=== PATIENT | male | born 1970 | race Caucasian/White ===

== ENCOUNTER 2016-05-29 07:04 | Emergency (ER) | payer OTHER ==
[2016-05-29 07:21] VITALS: BP 120/64
--- NOTE | 2016-05-29 07:55 | UC ---
Elena Stratton Anna, [facility] 05/29/16 at 0717 . Upper Extremity HPI - HPI Summary HPI Summary: MD Note Temperature 99.3 Vital signs stable. Pulse ox 97. 8/10 pain in right shoulder. Review of medical records note Disc herniation L2/L3 with an MRI in March 2015. No known allergies. Patient is here for pain relief. [facility]: #[id number]. Hydrocodone May 2015, #90, by Dr. Brant Parsons. Diazepam 5 mg #30, by Dr. Mando Peterson 07/31/2015. 90 Diazepam on 09/05/2015. Nurses Note pt states he has a 3 degree clavical seporation. pt states that he is having pain to rt shoulder. pt also states he has back pin as well. pt states this is a cronic issue for the past 10-12 years and this acute exacerbation has been for the past 1 week or so. 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 In Room Note Patient is a 45 y/o male coming to [facility] presenting with acute on chronic RIGHT SHOULDER PAIN that began one week ago. The pain RADIATES down his arm. He describes the pain as a burning pain with severity of pain as 8/10. He additionally reports BACK PAIN. Normally, the pain is alleviated with heat, but this week, the pain has been WORSENING. Acetaminophen, ibuprofen and TENS unit do not alleviate the pain. His ROM is normal. The most severe pain is under his right scapula. He reports DRY EYES and NUMB HANDS at baseline. Denies cold symptoms, n/v/d, fever. He denies previous operations on this arm. The patient lifts his arms frequently for work. He as a 3rd degree clavicle separation. His previous prescription for Valium was for anxiety. He has a standing appointment with his PCP tomorrow, 05/30/2016. - History of Current Complaint Stated Complaint: shoulder/arm pain Hx Obtained From: Patient Onset/Duration: Still Present, Worse Since - one week ago - Allergies/Home Medications Allergies/Adverse Reactions: Allergies Allergy/AdvReac Type Severity Reaction Status Date / Time No Known Allergies Allergy Verified 06/05/15 07:04 Home Medications: Home Medications DOXYcycline CAP(*) [DOXYcycline 100MG CAP(*)] 100 mg PO BID 05/29/16 [History Confirmed 05/29/16] PMH/Surg Hx/FS Hx/Imm Hx Endocrine History Of: Denies: Diabetes, Thyroid Disease Cardiovascular History Of: Denies: Cardiac Disorders, Hypertension, Pacemaker/ICD Respiratory History Of: Denies: COPD, Asthma GI/ History Of: Reports: Kidney Stones - HISTORY- OF AND CURRENTLY-BILATERAL Denies: Ulcer, Renal Disease Neurological History Of: Reports: Seizures - X 1 - WHEN STOPPED CLONZEPAM ABRUPTLY-~06/2014, Migraine - OCCASIONAL Psychological History Of: Reports: Anxiety - CLONAZEPAM, Depression - Surgical History Surgical History: Yes Surgery Procedure, Year, and Place: appendectomy as a child - Family History Known Family History: Positive: Cardiac Disease, Other - Colon [place] - Social History Alcohol Use: Rare Substance Use Type: None, Marijuana Substance Use Comment - Amount & Last Used: DAILY Smoking Status (MU): Former Smoker Review of Systems Constitutional: Negative Skin: Negative Eyes: Other - dry eyes ENT: Negative Respiratory: Negative Cardiovascular: Negative Gastrointestinal: Negative Genitourinary: Negative Motor: Negative Neurovascular: Negative Musculoskeletal: Arthralgia, Myalgia Neurological: Numbness Psychological: Negative All Other Systems Reviewed And Are Negative: Yes Physical Exam Triage Information Reviewed: Yes Appearance: Well-Appearing, No Pain Distress, Well-Nourished Vital Signs: Initial Vital Signs Temp 99.3 F 05/29/16 07:15 Pulse 69 05/29/16 07:15 Resp 18 05/29/16 07:15 BP 120/64 05/29/16 07:15 Pulse Ox 97 05/29/16 07:15 Vital Signs Reviewed: Yes Eyes: Positive: Conjunctiva Clear ENT: Positive: Hearing grossly normal, Pharynx normal, TMs normal. Negative: Muffled/hoarse voice Neck: Positive: Supple, No Lymphadenopathy Respiratory: Positive: Chest non-tender, Lungs clear, Normal breath sounds, No respiratory distress Cardiovascular: Positive: RRR, No Murmur Abdomen Description: Positive: Nontender, No Organomegaly, Soft Bowel Sounds: Positive: Present Musculoskeletal: Positive: Strength Intact, Other: - CORDERO. OBVIOUS STEPOFF AT AC JOINT. ELEVATION OF THE ARM CREATES INCREASED DISCOMFORT OVER THE SCAPULA AND ROTATOR MUSCLES. MILD POINT TENDERNESS OF R SCAPULA. Nonetheless, there is full ROM and no deficits in movement, circulation, or sensation of RUE. Neurological: Positive: Alert Psychological: Positive: Age Appropriate Behavior Skin: Negative: rashes Upper Extremity Course/Dx - Differential Dx/Diagnosis Differential Diagnosis/HQI/PQRI: Other - Tendonitis vs. muscle tear Provider Diagnoses: Rotator cuff overuse injury, right shoulder Discharge - Discharge Plan Condition: Stable Disposition: HOME Prescriptions: Cyclobenzaprine TAB* [Flexeril TAB*] 10 mg PO BID #10 tab MDD 2 HYDROcodone/ACETAMIN 5-325 MG* [[place] 5-325 TAB*] 1 tab PO Q6H #10 tab MDD 4 Patient Education Materials: Acromioclavicular Separation (ED), Rotator Cuff Tendinitis (ED) Referrals: Hair Higgins DO [Doctor of Osteopathy] - Additional Instructions: WE DISCUSSED: You probably have an injury/inflammation of the soft tissue around the right shoulder from overuse. Physical therapy, sling, anti-inflammatory medication, change of movement routine can help. I have given you Flexeril and Hydrocodone to get you through the next few days. Call for any new pain or disability. See your doctor tomorrow, as planned. The documentation as recorded by the Elena nelson Anna accurately reflects the service I personally performed and the decisions made by me, Vern Vernon MD.
== END 2016-05-29 07:58 | disposition home or self-care (01) ==
LOC: UCEAST 07:04
DX: M70.811 Other soft tissue disorders related to use, overuse and pressure, right shoulder (principal); Y93.9 Activity, unspecified; F12.90 Cannabis use, unspecified, uncomplicated; Z87.891 Personal history of nicotine dependence
CPT/HCPCS: 99212; G0463

== ENCOUNTER 2018-09-08 13:59 | Emergency (ER) | payer OTHER ==
[2018-09-08] MEDS ORDERED: Rabies VIRUS VACCINE (Imovax)* 2.5 UNIT/ML 1 ML IM ONE (14:03)
[2018-09-08] MEDS ORDERED: Tetan/Diph/Pertus SYR(Tdap)* 0.5 ML SYR(BOOSTRIX) use SYR IM ONE (14:03)
--- NOTE | 2018-09-08 14:04 | UC ---
General HPI - HPI Summary HPI Summary: 48 yo male presents for rabies immunizations. He tells me that last night his cat was fighting with a raccoon and pt went to separate them. Pt ended up picking up the raccoon and them. He notified the health department this morning and they recommended he undergo rabies vaccination. Pt states he sustained no bite or scratches. 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 He has no symptoms at this time. - History of Current Complaint Stated Complaint: RABBIES SHOTS Time Seen by Provider: 09/08/18 14:03 Hx Obtained From: Patient Onset/Duration: Sudden Onset Current Severity: None - Allergy/Home Medications Allergies/Adverse Reactions: Allergies Allergy/AdvReac Type Severity Reaction Status Date / Time No Known Allergies Allergy Verified 09/08/18 14:16 Home Medications: Home Medications NK [No Home Medications Reported] 09/08/18 [History Confirmed 09/08/18] PMH/Surg Hx/FS Hx/Imm Hx - Additional Past Medical History Additional PMH: None - Surgical History Surgical History: Yes Surgery Procedure, Year, and Place: appendectomy as a child. LSP DISC REPAIR - Family History Known Family History: Positive: Cardiac Disease, Other - Colon [place] - Social History Occupation: Employed Full-time Lives: With Family Alcohol Use: Rare Substance Use Type: Marijuana Substance Use Comment - Amount & Last Used: DAILY Smoking Status (MU): Former Smoker Review of Systems All Other Systems Reviewed And Are Negative: Yes Constitutional: Positive: Negative Skin: Positive: Negative Respiratory: Positive: Negative Cardiovascular: Positive: Negative Neurovascular: Positive: Negative Neurological: Positive: Negative Psychological: Positive: Negative Physical Exam - Summary Physical Exam Summary: GENERAL: NAD. WDWN. No pain distress. SKIN: RIGHT HAND: ulnar aspect along 5th MC there is a superficial 2.5cm linear scratch that appears new. Several healed and healing abrasions and khalil on b/l palms. CHEST: No accessory muscle use. Breathing comfortably and in no distress. CV: Pulses intact. Cap refill <2seconds NEURO: Alert. PSYCH: Age appropriate behavior. Triage Information Reviewed: Yes Vital Signs: Vital Signs: Temp Pulse Resp BP Pulse Ox 98.0 F 87 20 117/74 92 09/08/18 14:10 09/08/18 14:10 09/08/18 14:10 09/08/18 14:10 09/08/18 14:10 Vital Signs Reviewed: Yes Course/Dx - Course Course Of Treatment: Rabies vaccine and tdap given today. RIG given according to health department recommendations. 0.9mL in the right hand at site of new scratch. - Diagnoses Provider Diagnosis: Contact with and suspected exposure to rabies Discharge - Sign-Out/Discharge Documenting (check all that apply): Patient Departure All imaging exams completed and their final reports reviewed: No Studies - Discharge Plan Condition: Stable Disposition: HOME Patient Education Materials: Rabies Vaccine (By injection), Rabies Immune Globulin (By injection), Rabies (ED) Referrals: Ketan Gutierrez MD [Primary Care Provider] - Additional Instructions: If you develop a fever, shortness of breath, chest pain, new or worsening symptoms - please call your PCP or go to the ED immediately. Your blood pressure was high at todays visit. Please see your primary provider within 4 weeks for recheck and re-evaluation. - Billing Disposition and Condition Condition: STABLE Disposition: Home
[2018-09-08 14:16] VITALS: BP 117/74
[2018-09-08] MEDS ORDERED: Rabies Immune Globulin/PF 1ML* 1 ML/300 UNITS VIAL IM ONE (14:17)
== END 2018-09-08 15:00 | disposition home or self-care (01) ==
LOC: UCEAST 13:59
DX: Z20.3 Contact with and (suspected) exposure to rabies (principal); Z87.891 Personal history of nicotine dependence
CPT/HCPCS: 90375; 90471; 90472; 90715; 96372; 99211; G0463

== ENCOUNTER 2018-09-11 07:11 | Emergency (ER) | payer OTHER ==
[2018-09-11 07:28] VITALS: BP 119/79
[2018-09-11] MEDS ORDERED: Rabies VIRUS VACCINE (Imovax)* 2.5 UNIT/ML 1 ML IM ONE (07:41)
--- NOTE | 2018-09-11 07:52 | UC ---
UC General HPI - HPI Summary HPI Summary: Pt here for second booster (day 3) of rabies vaccine. Was seen 09/08/18 for day 0. No new issues. No fever / chills. No sob / cp/ palpitations. No GI issues. No rash. - History of Current Complaint Chief Complaint: UCGeneralIllness Stated Complaint: RABIES VAC Time Seen by Provider: 09/11/18 07:41 Hx Obtained From: Patient Pain Intensity: 0 - Allergy/Home Medications Allergies/Adverse Reactions: Allergies Allergy/AdvReac Type Severity Reaction Status Date / Time No Known Allergies Allergy Verified 09/11/18 07:21 PMH/Surg Hx/FS Hx/Imm Hx Previously Healthy: Yes - Surgical History Surgical History: Yes Surgery Procedure, Year, and Place: appendectomy as a child. LSP DISC REPAIR - Family History Known Family History: Positive: Cardiac Disease, Other - Colon [place] - Social History Alcohol Use: None Substance Use Type: None Substance Use Comment - Amount & Last Used: DAILY Smoking Status (MU): Former Smoker Review of Systems All Other Systems Reviewed And Are Negative: Yes Constitutional: Positive: Negative Skin: Positive: Negative Eyes: Positive: Negative ENT: Positive: Negative Respiratory: Positive: Negative Cardiovascular: Positive: Negative Gastrointestinal: Positive: Negative Genitourinary: Positive: Negative Motor: Positive: Negative Neurovascular: Positive: Negative Musculoskeletal: Positive: Negative Neurological: Positive: Negative Psychological: Positive: Negative Is Patient Immunocompromised?: No Physical Exam Triage Information Reviewed: Yes Appearance: Well-Appearing, Well-Nourished Vital Signs: Initial Vital Signs Temp 98.5 F 09/11/18 07:21 Pulse 68 09/11/18 07:21 Resp 18 09/11/18 07:21 BP 119/79 09/11/18 07:21 Pulse Ox 99 09/11/18 07:21 Vital Signs Reviewed: Yes Eye Exam: Normal ENT Exam: Normal Neck exam: Normal Respiratory Exam: Normal - RR normal, no tachypnea, no dyspnea Cardiovascular Exam: Normal - HR regular. nondiaphoretic Abdominal Exam: Normal - sitting up, no c/o, grossly benign Musculoskeletal Exam: Normal - moves x 4 ext's, gait steady Neurological Exam: Normal - grossly nonfocal Psychological Exam: Normal - conversing easily and appropriately Skin Exam: Normal - no visible or reported rash Course/Dx - Course Course Of Treatment: No current issues. Tolerating well. F/u per [facility]. Questions answered as posed. - Diagnoses Provider Diagnosis: Rabies exposure Discharge - Sign-Out/Discharge Documenting (check all that apply): Patient Departure All imaging exams completed and their final reports reviewed: No Studies - Discharge Plan Condition: Stable Disposition: HOME Patient Education Materials: Rabies Vaccine (By injection) Referrals: Ketan Gutierrez MD [Primary Care Provider] - Additional Instructions: Follow up per Health Department. Seek medical attention for worse or new problems. - Billing Disposition and Condition Condition: STABLE Disposition: Home
== END 2018-09-11 08:10 | disposition home or self-care (01) ==
LOC: UCEAST 07:11
DX: Z20.3 Contact with and (suspected) exposure to rabies (principal); Z29.14 Encounter for prophylactic rabies immune globulin; Z87.891 Personal history of nicotine dependence
CPT/HCPCS: 90471; 99211; G0463

== ENCOUNTER 2018-09-15 14:00 | Emergency (ER) | payer OTHER ==
[2018-09-15 14:13] VITALS: BP 107/76
[2018-09-15] MEDS ORDERED: Rabies VIRUS VACCINE (Imovax)* 2.5 UNIT/ML 1 ML IM ONE (14:42)
--- NOTE | 2018-09-15 14:46 | UC ---
UC General HPI - HPI Summary HPI Summary: 48-year-old male comes in for day 7 of his rabies immunization. Patient is here for day 0 on 09/08/18 on day 3 at 09/11/18. Patient has been asymptomatic. - History of Current Complaint Chief Complaint: UCBiteInjury Stated Complaint: RABIES SHOT Time Seen by Provider: 09/15/18 14:40 Pain Intensity: 0 - Allergy/Home Medications Allergies/Adverse Reactions: Allergies Allergy/AdvReac Type Severity Reaction Status Date / Time No Known Allergies Allergy Verified 09/15/18 14:13 PMH/Surg Hx/FS Hx/Imm Hx Previously Healthy: Yes - Surgical History Surgical History: Yes Surgery Procedure, Year, and Place: appendectomy as a child. LSP DISC REPAIR - Family History Known Family History: Positive: Cardiac Disease, Other - Colon [place] - Social History Alcohol Use: None Substance Use Type: None Substance Use Comment - Amount & Last Used: DAILY Smoking Status (MU): Former Smoker Review of Systems All Other Systems Reviewed And Are Negative: Yes Constitutional: Positive: Negative Skin: Positive: Negative Eyes: Positive: Negative ENT: Positive: Negative Respiratory: Positive: Negative Cardiovascular: Positive: Negative Gastrointestinal: Positive: Negative Motor: Positive: Negative Neurovascular: Positive: Negative Musculoskeletal: Positive: Negative Neurological: Positive: Negative Psychological: Positive: Negative Is Patient Immunocompromised?: No Physical Exam Triage Information Reviewed: Yes Appearance: Well-Appearing, No Pain Distress, Well-Nourished Vital Signs: Initial Vital Signs Temp 98.1 F 09/15/18 14:10 Pulse 76 09/15/18 14:10 Resp 18 09/15/18 14:10 BP 107/76 09/15/18 14:10 Pulse Ox 99 09/15/18 14:10 Vital Signs Reviewed: Yes Eye Exam: Normal Eyes: Positive: Conjunctiva Clear Neck: Positive: Supple Respiratory: Positive: No respiratory distress Musculoskeletal Exam: Normal Musculoskeletal: Positive: Strength Intact, ROM Intact Neurological Exam: Normal Neurological: Positive: Alert, Muscle Tone Normal Psychological Exam: Normal Psychological: Positive: Age Appropriate Behavior Skin Exam: Normal Course/Dx - Course Course Of Treatment: Day 7 given today. Due for Day 14 in 1 week. Patient remains asymptomatic. - Diagnoses Provider Diagnosis: Encounter for repeat administration of rabies vaccination Discharge - Sign-Out/Discharge Documenting (check all that apply): Patient Departure All imaging exams completed and their final reports reviewed: No Studies - Discharge Plan Condition: Stable Disposition: HOME Patient Education Materials: Rabies Vaccine (ED) Referrals: Ketan Gutierrez MD [Primary Care Provider] - Additional Instructions: YOU HAD YOUR DAY 7 RABIES IMMUNIZATION TODAY GET YOUR DAY 14 RABIES IMMUNIZATION ON 09/22/18 GET RECHECKED SOONER FOR ANY WORSENING OF YOUR SYMPTOMS OR QUESTIONS OR CONCERNS. - Billing Disposition and Condition Condition: STABLE Disposition: Home
== END 2018-09-15 14:55 | disposition home or self-care (01) ==
LOC: UCEAST 14:00
DX: Z29.14 Encounter for prophylactic rabies immune globulin (principal); Z87.891 Personal history of nicotine dependence
CPT/HCPCS: 90471; 99211; G0463

== ENCOUNTER 2018-09-22 14:00 | Emergency (ER) | payer OTHER ==
[2018-09-22] MEDS ORDERED: Rabies VIRUS VACCINE (RabAvert)* 2.5 UNITS VIAL IM ONE (14:27)
[2018-09-22 14:30] VITALS: BP 111/64
[2018-09-22] MEDS ORDERED: Rabies VIRUS VACCINE (Imovax)* 2.5 UNIT/ML 1 ML IM ONE (14:43)
--- NOTE | 2018-09-22 14:47 | UC ---
Bite Injury/Animal HPI - HPI Summary HPI Summary: 48 yo male here for rabies shot cat in fight with raccoon states this is his last shot no problems /questions or concerns - History of Current Complaint Chief Complaint: UCGeneralIllness Stated Complaint: RABIES POST EXPOSURE Time Seen by Provider: 09/22/18 14:27 Hx Obtained From: Patient Severity Currently: None Pain Intensity: 0 Pain Scale Used: 0-10 Numeric Type of Bite: Animal Has Animal Been Immunized?: No Animal Available for Observation: No Animal Control Notified: Yes - Allergies/Home Medications Allergies/Adverse Reactions: Allergies Allergy/AdvReac Type Severity Reaction Status Date / Time No Known Allergies Allergy Verified 09/22/18 14:29 PMH/Surg Hx/FS Hx/Imm Hx Previously Healthy: Yes - Surgical History Surgical History: Yes Surgery Procedure, Year, and Place: appendectomy as a child. LSP DISC REPAIR - Family History Known Family History: Positive: Cardiac Disease, Other - Colon [place] - Social History Lives: Alone Alcohol Use: None Substance Use Type: None Substance Use Comment - Amount & Last Used: DAILY Smoking Status (MU): Former Smoker Review of Systems All Other Systems Reviewed And Are Negative: Yes Constitutional: Positive: Negative Skin: Positive: Negative Eyes: Positive: Negative ENT: Positive: Negative Respiratory: Positive: Negative Cardiovascular: Positive: Negative Gastrointestinal: Positive: Negative Genitourinary: Positive: Negative Motor: Positive: Negative Neurovascular: Positive: Negative Musculoskeletal: Positive: Negative Neurological: Positive: Negative Psychological: Positive: Negative Physical Exam Triage Information Reviewed: Yes Appearance: Well-Appearing, No Pain Distress, Well-Nourished, Thin Vital Signs: Initial Vital Signs Temp 98.6 F 09/22/18 14:30 Pulse 74 09/22/18 14:30 Resp 18 09/22/18 14:30 BP 111/64 09/22/18 14:30 Pulse Ox 96 09/22/18 14:30 Vital Signs Reviewed: Yes Eyes: Positive: Conjunctiva Clear ENT: Positive: Hearing grossly normal. Negative: Nasal congestion, Nasal drainage, Muffled voice, Hoarse voice Neck: Positive: Supple, Nontender Respiratory: Positive: Lungs clear, Normal breath sounds, No respiratory distress, No accessory muscle use Cardiovascular: Positive: RRR, No Murmur Musculoskeletal: Positive: ROM Intact, No Edema Neurological: Positive: Alert Psychological Exam: Normal Skin Exam: Normal Bite Injury Course/Dx - Course Course Of Treatment: exposure to raccoon saliva - Differential Dx/Diagnosis Provider Diagnosis: Need for immunization against rabies Discharge - Sign-Out/Discharge Documenting (check all that apply): Patient Departure All imaging exams completed and their final reports reviewed: No Studies - Discharge Plan Condition: Stable Disposition: HOME Patient Education Materials: Rabies Vaccine (ED) Referrals: Terry Slaughter TOE STRIPPER [Primary Care Provider] - If Needed - Billing Disposition and Condition Condition: STABLE Disposition: Home
== END 2018-09-22 14:50 | disposition home or self-care (01) ==
LOC: UCEAST 14:00
DX: Z20.3 Contact with and (suspected) exposure to rabies (principal); Z29.14 Encounter for prophylactic rabies immune globulin
CPT/HCPCS: 90471; 90675; 99211; G0463